=== PATIENT | female | born 1985 | race Caucasian/White ===

== ENCOUNTER 2021-08-19 14:53 | Emergency (ER) | payer OTHER ==
[~2021-08-19 14:53] MED LIST: NAPROXEN500 MG PO; ULTRAM50 MG PO
[2021-08-19 15:44] LABS: BASOPHIL 0.9 % (0-2); EOSINOPHIL 1.6 % (0-5); HCT 50.8 % (37.0-47.0); HGB 18.1 g/dl (12.5-16.0); MCH 31.3 pg (25.0-31.0); MCHC 35.6 g/dL (32.0-36.0); MCV 87.9 fL (78.0-100.0); MONOCYTE 17.8 % (0-12); MPV 9.4 fL (6.0-9.5); NEUTROPHIL 36.4 % (41-80); NRBC 0; PLT 369 K/uL (150-400); RBC 5.78 M/uL (4.20-5.40); RDW 11.3 % (11.5-14.0); WBC 4.3 K/uL (4.0-10.5)
[2021-08-19 15:50] LABS: LYMPHOCYTE 43.1 % (15-48)
[2021-08-19 15:52] LABS: BILIRUBIN 1+ mg/dL (NEGATIVE); BLOOD 1+ Ery/uL (NEGATIVE); CLARITY HAZY (CLEAR); COLOR YELLOW (YELLOW); GLUCOSE (U) NORMAL (NORMAL); LEUKOCYTES NEGATIVE Leu/uL (NEGATIVE); NITRITE NEGATIVE (NEGATIVE); PROTEIN 1+ mg/dL (NEGATIVE); SPECIFIC GRAVITY 1.025 (1.001-1.030); UROBILINOGEN 0.2 mg/dL (0.2-1.0); pH 6.5 (5.0-9.0)
[2021-08-19 15:58] LABS: ALBUMIN 4.1 g/dL (3.4-5.0); BILIRUBIN - TOTAL 0.5 mg/dL (0.2-1.0); BUN/CREAT RATIO (CALC) 16.7 RATIO; CREATININE 1.26 mg/dL (0.51-0.95); POTASSIUM 2.9 mmol/L (3.5-5.1); TOTAL PROTEIN 9.1 g/dL (6.4-8.2)
[2021-08-19 16:07] LABS: BACTERIA 1+
[2021-08-19 16:08] LABS: AMMONIUM BUIRATE CRYSTALS MODERATE
[2021-08-19] MEDS ORDERED: METRONIDAZOLE500 MG PO (17:47)
[2021-08-19] MEDS ORDERED: ONDANSETRON ODT4 MG PO (17:47)
[2021-08-19] MEDS ORDERED: BENTYL10 MG PO (17:47)
[2021-08-21 08:11] LABS: HBSAG SCREEN Negative (Negative); HEP A AB, IGM Negative (Negative); HEP B CORE AB, IGM Negative (Negative); HEP C VIRUS AB <0.1 (0.0-0.9)
== END 2021-08-19 18:05 | disposition home or self-care (01) ==
LOC: FER 14:53
PROVIDERS: Emergency Medicine
DX: R10.9 Unspecified abdominal pain (principal); R11.2 Nausea with vomiting, unspecified; N17.9 Acute kidney failure, unspecified; E87.6 Hypokalemia; R94.5 Abnormal results of liver function studies
CPT/HCPCS: 36415; 80053; 80074; 81001; 83690; 85025; J2405; J7030; Q9967